=== PATIENT | male | born 1955 | race Caucasian/White ===

== ENCOUNTER 2017-06-27 15:21 | Emergency (ER) | payer OTHER ==
[~2017-06-27 15:21] MED LIST: ECO81 PO; PRI20 PO; ZOC10 PO
[2017-06-27 18:30] LABS: CALCIUM 8.7 mg/dL (8.5-10.1); CARBON DIOXIDE 30.6 mmol/L (21-32); CHLORIDE SERUM 102 mmol/L (98-107); CREATININE SERUM 0.8 mg/dL (0.7-1.3); GFR1 > 60 mL/min; GLUCOSE SERUM 96 mg/dL (74-106); POTASSIUM SERUM 3.6 mmol/L (3.5-5.1); SODIUM SERUM 140 mmol/L (136-145)
[2017-06-27 18:35] LABS: ALBUMIN 3.9 g/dL (3.4-5.0); ALKALINE PHOSPHATASE 61 U/L (46-116); ALT/SGPT 26 U/L (16-63); AST/SGOT 12 U/L (15-37); BILIRUBIN TOTAL 0.52 mg/dL (0.20-1.00); TOTAL PROTEIN, SERUM 7.2 g/dL (6.4-8.2)
[2017-06-27 18:48] LABS: BASOPHIL % 0.4 % (0-2); PLATELET COUNT 202 x10^3mcL (130-400); RED CELL DISTRIBUTION WIDTH 14.1 % (11.5-14.5)
[2017-06-27 19:33] VITALS: BP 129/88
== END 2017-06-27 19:33 | disposition left against medical advice (07) ==
LOC: ED 15:21
DX: R07.89 Other chest pain (principal); R53.1 Weakness; R78.5 Finding of other psychotropic drug in blood; M54.9 Dorsalgia, unspecified; E78.00 Pure hypercholesterolemia, unspecified; Z88.6 Allergy status to analgesic agent
CPT/HCPCS: 36415; 83880; Q0092

== ENCOUNTER 2018-08-10 09:47 | Emergency (ER) | payer SELFPAY ==
[~2018-08-10] VITALS: Ht 160 cm; Wt 70.3 kg
[2018-08-10 09:50] VITALS: Ht 160 cm; Wt 70.3 kg
[2018-08-10 12:05] LABS: CALCIUM 8.8 mg/dL (8.5-10.1); CARBON DIOXIDE 31.6 mmol/L (21-32); CHLORIDE SERUM 103 mmol/L (98-107); CREATININE SERUM 0.8 mg/dL (0.7-1.3); GFR1 > 60 mL/min; GLUCOSE SERUM 103 mg/dL (74-106); POTASSIUM SERUM 4.5 mmol/L (3.5-5.1); SODIUM SERUM 140 mmol/L (136-145)
[2018-08-10 12:11] LABS: ALBUMIN 3.9 g/dL (3.4-5.0); ALKALINE PHOSPHATASE 83 U/L (46-116); ALT/SGPT 25 U/L (16-63); AST/SGOT 10 U/L (15-37); BASOPHIL % 0.4 % (0-2); BILIRUBIN TOTAL 0.5 mg/dL (0.20-1.00); LIPASE 155 IU/L (73-393); PLATELET COUNT 198 x10^3mcL (130-400); RED CELL DISTRIBUTION WIDTH 13.6 % (11.5-14.5); TOTAL PROTEIN, SERUM 7.6 g/dL (6.4-8.2)
[2018-08-10 13:34] VITALS: BP 120/74
== END 2018-08-10 13:34 | disposition home or self-care (01) ==
LOC: ED 09:47
PROVIDERS: Emergency Medicine
DX: K29.70 Gastritis, unspecified, without bleeding (principal); E78.00 Pure hypercholesterolemia, unspecified; Z88.6 Allergy status to analgesic agent
CPT/HCPCS: J2405; J7030